=== PATIENT | male | born 1965 | race Caucasian/White ===

== ENCOUNTER 2020-03-27 13:55 | Outpatient (REF) | payer MEDICAID, SELFPAY ==
[2020-04-01 16:42] LABS: Patient Race White; SARS-CoV-2 RNA Undetected (Undetected); SARS-CoV-2 Specimen Source Nasal
== END 2020-03-27 14:15 ==
LOC: NCHCN 13:55
PROVIDERS: PCP Specialist/Technologist Athletic Trainer; Visit Provider Nurse Practitioner Family
DX: Z11.59 Encounter for screening for other viral diseases (principal)
CPT/HCPCS: U0003

== ENCOUNTER → 2023-01-08 00:08 | Outpatient (CLI) | payer MEDICAID, SELFPAY ==
--- NOTE | 2023-01-08 06:30 | DI.RAD_ITS ---
Exam(s) RF BARIUM SWALLOW EXAM: RF BARIUM SWALLOW CLINICAL HISTORY: CP level dysphagia,HOARSENESS,R13.14,R49.0,J38.01 TECHNIQUE: 2D and realtime digital imaging was performed. CONTRAST MATERIAL: Oral barium contrast was administered. COMPARISON: No exams were available for comparison FINDINGS: CHEST X-RAY: The heart and pulmonary vasculature are within normal limits. The lungs are clear. No pl eural effusion or pneumothorax is present. The bones are within normal limits for the patient's age. A left shoulder prosthesis is partially imaged. ESOPHAGRAM: The esophagus is patent with no evidence for erosions, fold thickening, strictures, or ma sses. With regards to the motility, there is a normal primary stripping wave. There is a very small hiatal hernia. No gastroesophageal reflux is present. IMPRESSION: Very small hiatal hernia otherwise normal examination. RADIATION DOSE DELIVERED: alberto Lewis=22.8 mGy
[2023-01-08] MEDS: Barium Sulfate 700 MG TAB PO (10:29)
[2023-01-08] MEDS: Barium Sulfate 98% W/W 140 ML BTL PO (10:30)
[2023-01-08] MEDS: Barium Sulfate 60% W/V 355 ML BTL PO (10:31)
== END ==
PROVIDERS: Visit Provider Otolaryngology
DX: J38.01 Paralysis of vocal cords and larynx, unilateral (principal); R13.14 Dysphagia, pharyngoesophageal phase; Q40.1 Congenital hiatus hernia
CPT/HCPCS: 74221; J3490